=== PATIENT | male | born 1975 | race Caucasian/White ===

== ENCOUNTER → 2018-12-02 16:26 | Outpatient (CLI) | payer SELFPAY ==
[2018-12-02 17:16] LABS: Absolute Lymphocyte Count 2.14 X10^3/ul (0.83-4.51); Absolute Neutrophil Count 4.3 X10^3/uL (2.0-7.7); Basophil# 0.03 X10^3/uL; Basophil% 0.4 % (0-1); Eosinophil# 0.29 X10^3/uL; Hemoglobin 15.6 g/dl (13.0-16.5); Lymphocyte # 2.14 X10^3/ul (4.0); Lymphocyte % 29.4 % (19-41); Mean Corp Hgb Conc 34.7 g/gl (32-36); Mean Corpuscular Volume 89.3 fL (80-94); Monocyte# 0.54 X10^3/uL; Monocyte% 7.4 % (0-10); Neutrophil # 4.26 X10^3/uL (2.7-7.7); Neutrophil % 58.7 % (47-70); Platelet Count 228 K/mm3 (150-450); RBC Distribution Width CV 12.5 % (11.6-14.6); RBC Distribution Width SD 40.6 fl (35.1-43.9); Red Blood Count 5.04 M/mm3 (4.6-6.2); White Blood Count 7.3 K/mm3 (4.4-11.0)
[2018-12-02 17:19] LABS: POSITIVE COUNT NO; POSITIVE DIFFERENTIAL NO; POSITIVE MORPHOLOGY NO
[2018-12-02 17:22] LABS: Erythrocyte Sedimentation Rate 4 mm/hr (0-15)
[2018-12-02 18:17] LABS: ALB/GLOB Ratio 1.2 RATIO (0.9-2.4); AST(SGOT) 26 U/L (15-37); Alanine Aminotransfer ALT/SGPT 60 U/L (16-61); Albumin, Serum 4.4 g/dL (3.2-5.0); Alkaline Phosphatase 66 U/L (45-117); Anion Gap 8 (5-15); BUN 14 mg/dL (7-18); BUN/Creat Ratio 12.1 RATIO (10-20); CPK Total, Creatine Kinase 106 U/L (39-308); Chloride 106 mmol/L (98-107); Creatinine, Serum 1.16 mg/dL (0.70-1.30); EST Glomerular Filtration Rate 73 mL/min (>60); Est Glom Filt Rate - Afr Amer 89 mL/min (>60); Free T3 3.2 pg/mL (2.18-3.98); Globulin 3.6 g/dL (2.2-4.2); Glucose 87 mg/dL (74-106); Potassium 3.7 mmol/L (3.5-5.1); Rheumatoid Factor < 10.0 IU/mL (<15); Sodium Level 141 mmol/L (136-145); T4 Free Direct 0.92 ng/dL (0.76-1.46); Thyroid Stim Hormone (TSH) 0.75 uIU/mL (0.358-3.74)
[2018-12-02 18:28] LABS: Vitamin D,25 Hydroxy 18.5 ng/mL (29.95-100.01)
[2018-12-06 12:47] LABS: ANTINUCLEAR ANTIBODIES DIRECT Negative (Negative)
[2018-12-07 11:39] LABS: Acetylcholine Receptor Binding < 0.03 nmol/L (0.00-0.24); CCP IgG Antibodies 9 units (0-19)
== END ==
PROVIDERS: Family Provider Family Medicine; PCP Family Medicine; Visit Provider Family Medicine
DX: G72.9 Myopathy, unspecified (principal); G70.9 Myoneural disorder, unspecified; E55.9 Vitamin D deficiency, unspecified; R53.83 Other fatigue
CPT/HCPCS: 36415; 80053; 82306; 82550; 84238; 84439; 84443; 84481; 85025; 85652; 86038; 86200; 86225; 86235; 86431

== ENCOUNTER → 2019-09-04 | Outpatient (CLI) | payer OTHER, SELFPAY ==
[2014-10-19 10:22] VITALS: BMI 34.8
== END | disposition home or self-care (01) ==
LOC: BFHLAB 15:56
PROVIDERS: Family Provider Family Medicine; PCP Family Medicine; Visit Provider Family Medicine
DX: R68.82 Decreased libido (principal)
CPT/HCPCS: 36415; 84403

== ENCOUNTER → 2019-12-18 16:47 | Outpatient (CLI) | payer OTHER, SELFPAY ==
[2014-10-19 10:22] VITALS: BMI 34.8
[2019-12-18 17:38] LABS: Absolute Lymphocyte Count 2.32 X10^3/uL (0.83-4.51); Absolute Neutrophil Count 6.7 X10^3/uL (2.0-7.7); Basophil# 0.03 X10^3/uL; Basophil% 0.3 % (0-1); Eosinophil# 0.16 X10^3/uL; Eosinophils% 1.6 % (0-5); Hemoglobin 16.1 g/dL (13.0-16.5); Lymphocyte # 2.32 X10^3/ul (4.0); Lymphocyte % 23.2 % (19-41); Mean Corpuscular Hgb 31.1 pg (27.0-32.0); Mean Platelet Vol. 9.8 fl (6.2-12.0); Monocyte# 0.76 X10^3/uL; Monocyte% 7.6 % (0-10); NRBC Flagged by Analyzer 0 % (0-5); Neutrophil # 6.68 X10^3/uL (2.7-7.7); Neutrophil % 66.9 % (47-70); Platelet Count 229 K/mm3 (150-450); RBC Distribution Width CV 11.7 % (11.6-14.6); RBC Distribution Width SD 38.1 fl (35.1-43.9); Red Blood Count 5.17 M/mm3 (4.6-6.2)
[2019-12-18 17:54] LABS: Hemoglobin A1c 5.2 % (4.2-6.3)
[2019-12-18 18:10] LABS: Vitamin D,25 Hydroxy 27.1 ng/mL (29.95-100.01)
[2019-12-18 18:11] LABS: ALB/GLOB Ratio 1.3 RATIO (0.9-2.4); AST(SGOT) 11 U/L (15-37); Alanine Aminotransfer ALT/SGPT 32 U/L (16-61); Albumin, Serum 4.2 g/dL (3.2-5.0); Alkaline Phosphatase 68 U/L (45-117); Anion Gap 7 (5-15); BUN 13 mg/dL (7-18); BUN/Creat Ratio 11.1 RATIO (10-20); Chloride 106 mmol/L (98-107); Creatinine, Serum 1.17 mg/dL (0.70-1.30); EST Glomerular Filtration Rate 72 mL/min (>60); Est Glom Filt Rate - Afr Amer 87 mL/min (>60); Globulin 3.3 g/dL (2.2-4.2); Glucose 92 mg/dL (74-106); Magnesium 2.3 mg/dL (1.6-2.6); Potassium 3.8 mmol/L (3.5-5.1); Protein, Total 7.5 g/dL (6.4-8.2); Sodium Level 139 mmol/L (136-145); T4 Free Direct 1.06 ng/dL (0.76-1.46); Thyroid Stim Hormone (TSH) 0.89 uIU/mL (0.358-3.74)
[2019-12-19 09:00] LABS: Follicle Stimulating Hormone 4.2 mIU/mL; Luteinizing Hormone 2.6 mIU/mL
== END ==
PROVIDERS: Visit Provider Family Medicine
DX: E55.9 Vitamin D deficiency, unspecified (principal); R63.4 Abnormal weight loss; R00.2 Palpitations; R68.82 Decreased libido
CPT/HCPCS: 36415; 80053; 82306; 83001; 83002; 83036; 83735; 84403; 84439; 84443; 85025

== ENCOUNTER → 2021-03-03 16:56 | Outpatient (CLI) | payer BC, SELFPAY ==
[2014-10-19 10:22] VITALS: BMI 34.8
[2021-03-03 17:53] LABS: Absolute Lymphocyte Count 2.15 X10^3/uL (0.83-4.51); Absolute Neutrophil Count 4.5 X10^3/uL (2.0-7.7); Basophil# 0.04 X10^3/uL; Basophil% 0.5 % (0-1); Eosinophil# 0.27 X10^3/uL; Eosinophils% 3.5 % (0-5); Hematocrit 46.9 % (40-54); Hemoglobin 15.9 g/dL (13.0-16.5); Lymphocyte # 2.15 X10^3/ul (0.83-4.51); Mean Corp Hgb Conc 33.9 g/dL (32-36); Mean Corpuscular Hgb 30.6 pg (27.0-32.0); Mean Corpuscular Volume 90.4 fL (80-94); Mean Platelet Vol. 10.1 fl (6.2-12.0); Monocyte# 0.67 X10^3/uL; Monocyte% 8.7 % (0-10); NRBC Flagged by Analyzer 0 % (0-5); Neutrophil # 4.52 X10^3/uL (2.7-7.7); Platelet Count 233 K/mm3 (150-450); RBC Distribution Width CV 12.2 % (11.6-14.6); RBC Distribution Width SD 40.1 fl (35.1-43.9); Red Blood Count 5.19 M/mm3 (4.6-6.2); White Blood Count 7.7 K/mm3 (4.4-11.0)
[2021-03-03 18:44] LABS: ALB/GLOB Ratio 1.2 RATIO (0.9-2.4); AST(SGOT) 21 U/L (15-37); Alanine Aminotransfer ALT/SGPT 48 U/L (16-61); Albumin, Serum 3.9 g/dL (3.2-5.0); Alkaline Phosphatase 74 U/L (45-117); Anion Gap 7 (5-15); BUN 12 mg/dL (7-18); Calcium,Total 8.5 mg/dL (8.5-10.1); Chloride 107 mmol/L (98-107); Creatinine, Serum 1.09 mg/dL (0.70-1.30); EST Glomerular Filtration Rate 78 mL/min (>60); Est Glom Filt Rate - Afr Amer 94 mL/min (>60); Globulin 3.3 g/dL (2.2-4.2); Glucose 96 mg/dL (74-106); Potassium 3.8 mmol/L (3.5-5.1); Protein, Total 7.2 g/dL (6.4-8.2); Sodium Level 140 mmol/L (136-145); Thyroid Stim Hormone (TSH) 1.27 uIU/mL (0.358-3.74)
[2021-03-04 10:35] LABS: Follicle Stimulating Hormone 3.9 mIU/mL; Luteinizing Hormone 2.8 mIU/mL
== END ==
PROVIDERS: PCP Family Medicine; Referring Provider Family Medicine; Visit Provider Family Medicine
DX: R63.4 Abnormal weight loss (principal); E55.9 Vitamin D deficiency, unspecified; R68.82 Decreased libido; R06.00 Dyspnea, unspecified; E29.1 Testicular hypofunction
CPT/HCPCS: 36415; 80053; 83001; 83002; 84403; 84439; 84443; 85025

== ENCOUNTER → 2021-03-31 16:25 | Outpatient (CLI) | payer BC, SELFPAY ==
[2014-10-19 10:22] VITALS: BMI 34.8
[2021-03-31 18:35] LABS: PSA,Total - Annual Screen 0.65 ng/mL (0.00-4.00)
== END ==
PROVIDERS: PCP Family Medicine; Referring Provider Family Medicine; Visit Provider Family Medicine
DX: Z12.5 Encounter for screening for malignant neoplasm of prostate (principal)
CPT/HCPCS: 36415; 84153; G0103

== ENCOUNTER → 2022-12-07 | Outpatient (CLI) | payer BC, SELFPAY ==
[2022-12-07 18:14] LABS: Absolute Lymphocyte Count 2.09 X10^3/uL (0.83-4.51); Absolute Neutrophil Count 5.8 X10^3/uL (2.0-7.7); Basophil# 0.03 X10^3/uL; Basophil% 0.3 % (0-1); Eosinophil# 0.25 X10^3/uL; Eosinophils% 2.8 % (0-5); Hematocrit 51.6 % (40-54); Lymphocyte # 2.09 X10^3/ul (0.83-4.51); Lymphocyte % 23.3 % (19-41); Mean Corp Hgb Conc 34.9 g/dL (32-36); Mean Corpuscular Hgb 30.6 pg (27.0-32.0); Mean Corpuscular Volume 87.8 fL (80-94); Monocyte# 0.76 X10^3/uL; Monocyte% 8.5 % (0-10); NRBC Flagged by Analyzer 0 % (0-5); Neutrophil # 5.83 X10^3/uL (2.7-7.7); Neutrophil % 64.9 % (47-70); Platelet Count 234 K/mm3 (150-450); RBC Distribution Width CV 12.4 % (11.6-14.6); RBC Distribution Width SD 40.3 fl (35.1-43.9); Red Blood Count 5.88 M/mm3 (4.6-6.2)
[2022-12-07 18:40] LABS: Vitamin B12 473 pg/mL (211-911)
[2022-12-07 18:47] LABS: ALB/GLOB Ratio 1.2 RATIO (0.9-2.4); AST(SGOT) 21 U/L (15-37); Alanine Aminotransfer ALT/SGPT 40 U/L (16-61); Albumin, Serum 4.2 g/dL (3.2-5.0); Alkaline Phosphatase 46 U/L (45-117); Anion Gap 7 (5-15); BUN 11 mg/dL (7-18); BUN/Creat Ratio 9.1 RATIO (10-20); Calcium,Total 8.9 mg/dL (8.5-10.1); Chloride 105 mmol/L (98-107); Creatinine, Serum 1.21 mg/dL (0.70-1.30); EST Glomerular Filtration Rate 68 mL/min (>60); Est Glom Filt Rate - Afr Amer 83 mL/min (>60); Ferritin 28 ng/mL (26-388); Follicle Stimulating Hormone < 0.2 mIU/mL; Globulin 3.5 g/dL (2.2-4.2); Glucose 87 mg/dL (74-106); Luteinizing Hormone < 0.2 mIU/mL; PSA,Total - Annual Screen 0.83 ng/mL (0.00-4.00); Potassium 4.1 mmol/L (3.5-5.1); Prolactin 33.9 ng/mL; Protein, Total 7.7 g/dL (6.4-8.2); Sodium Level 140 mmol/L (136-145); Thyroid Stim Hormone (TSH) 1.13 uIU/mL (0.358-3.74)
[2022-12-08 12:31] LABS: Pathologist Review Reviewed
[2022-12-11 11:09] LABS: Testosterone, Free 30.08 ng/dL (5.00-21.00)
[2022-12-11 19:22] LABS: Testosterone, % Free 4.06 % (1.50-4.20); Testosterone, Total 741 ng/dL (264-916)
== END | disposition home or self-care (01) ==
LOC: BFHLAB 16:17
PROVIDERS: PCP Family Medicine; Visit Provider Family Medicine
DX: E29.1 Testicular hypofunction (principal); R51.9 Headache, unspecified; H53.9 Unspecified visual disturbance; R41.3 Other amnesia; Z51.81 Encounter for therapeutic drug level monitoring
CPT/HCPCS: 36415; 80053; 82607; 82728; 83001; 83002; 84146; 84153; 84402; 84403; 84443; 85025; G0103

== ENCOUNTER → 2023-01-04 | Outpatient (CLI) | payer BC, SELFPAY ==
--- NOTE | 2023-01-04 06:38 | MRI_ITS ---
STUDY: MRI CERVICAL SPINE WITH AND WITHOUT CONTRAST REASON FOR EXAM: Male, 47 years old. LEFT ARM NUMBNESS, HEADACHES TECHNIQUE: Standardized fat and water weighted pulse sequences were obtained in the sagittal and axial following administration of IV 23ml clariscan. COMPARISON: None FINDINGS: Normal foramen magnum and brainstem-cervical cord junction. Normal craniovertebral junction. Normal anterior atlantoaxial articulation. Normal odontoid process. Normal cervical lordosis. Normal vertebral bodies and posterior osseous elements. C2-3: Normal endplates. Normal disc height, signal and morphology. Normal central canal and intervertebral neural foramina. C3-4: Normal endplates. Normal disc height, signal and morphology. Normal central canal and intervertebral neural foramina. C4-5: Normal endplates. Normal disc height, signal and morphology. Normal central canal and right neural foramen. Mild left foraminal stenosis secondary to uncovertebral and facet joint hypertrophy, with nerve root impingement. C5-6: Normal endplates. Moderate disc space narrowing with diffuse disc desiccation and mild posterior annular bulging eccentric to the right contributing to mild central canal stenosis and mass effect on anterior aspect of the cord. Normal central canal and intervertebral neural foramina. C6-7: Normal endplates. Diffuse disc desiccation with mild disc space narrowing and minimal annular bulging posteriorly Normal central canal and intervertebral neural foramina. C7-T1: Normal endplates. Mild disc desiccation. Normal disc height and morphology. Normal central canal and intervertebral neural foramina. Normal cervical cord. There is no demonstrated cervical cord demyelinating process or syrinx or evidence of cord injury. There is no abnormal enhancement of the bony or soft tissue structures or spinal cord. No suspicious bony or soft tissue abnormalities are present. Normal visualized soft tissue structures. MRI/Spine Cervical W/WO Contrast IMPRESSION: 1. Multilevel degenerative changes, as described above. 2. Moderate disc space narrowing with posterior annular bulging contributing to mild central canal stenosis at C5-C6. 3. C4-C5 mild left foraminal stenosis secondary to uncovertebral and facet joint hypertrophy, with nerve root impingement. Electronically Signed: José Talbot MD at 15:14 EST ,
--- NOTE | 2023-01-04 06:38 | MRI_ITS ---
STUDY: MRI BRAIN WITH AND WITHOUT CONTRAST REASON FOR EXAM: Male, 47 years old. DAILY HEADACHES, VISION DISTURBANCE,LT ARM NUMBESS, MEMORY IMPAIRMENT TECHNIQUE: Standardized multiplanar fat and water weighted pulse sequences were obtained. 23ML IV CLARISCAN was administered for the contrast portion of the examination. COMPARISON: None. FINDINGS: Normal size extra-axial spaces for the patient''s age. Normal white matter tracts of the supratentorial brain. There is no evidence for recent intracranial ischemia or other cause of cytotoxic edema on diffusion weighted imaging (DWI). Normal T2* images of the brain without demonstrated susceptibility artifact. There is no demonstrated hemosiderin stain. There are no demyelinating plagues of the supratentorial brain, brainstem or cerebellum. There are no findings suspicious for multiple sclerosis (MS). There is asymmetry of the ventricles consistent with an anatomic variant. Normal bilateral basal ganglia. Normal thalami. There is no extra-axial fluid accumulation. Normal flow voids within the major intracranial circulation suggesting patency by spin echo criteria. Normal venous enhancement. There is no enhancing intra-axial or extra-axial abnormality. There are no focal brain parenchymal lesions or abnormal enhancement. There is no abnormal thickening or enhancement of meninges or dura. No pituitary lesion or enlargement is present. Normal sella turcica, pituitary gland, infundibular stalk, optic chiasm and hypothalamus. Normal tectal plate and pineal gland. Normal midbrain, bony and medulla. Normal cerebellum. Normal basal cisterns. Normal bilateral temporal bones. Normal bilateral internal auditory canals. No demonstrated orbital abnormality, within the constraints of a routine brain study. Normal visualized paranasal sinuses. Normal calvarium and skull base. Normal visualized soft tissue structures. Normal visualized upper cervical spine. MRI/Brain W/WO Contrast IMPRESSION: 1. Normal unenhanced and enhanced MRI of the brain. 2. There is no enhancing intra-axial or extra-axial abnormality. There are no focal brain parenchymal lesions or abnormal enhancement. There is no abnormal thickening or enhancement of meninges or dura. No pituitary lesion or enlargement is present. Electronically Signed: José Talbot MD at 12:57 EST ,
== END | disposition home or self-care (01) ==
PROVIDERS: PCP Family Medicine; Referring Provider Family Medicine; Visit Provider Family Medicine
DX: R51.9 Headache, unspecified (principal); H53.8 Other visual disturbances; R20.2 Paresthesia of skin; R41.3 Other amnesia
CPT/HCPCS: 70553; 72156; A9575

== ENCOUNTER → 2023-10-16 | Outpatient (CLI) | payer BC, SELFPAY ==
[2023-10-16 08:57] LABS: Absolute Lymphocyte Count 1.66 X10^3/uL (0.83-4.51); Absolute Neutrophil Count 5.6 X10^3/uL (2.0-7.7); Basophil# 0.04 X10^3/uL; Basophil% 0.5 % (0-1); Eosinophil# 0.24 X10^3/uL; Eosinophils% 2.9 % (0-5); Hemoglobin 18.4 g/dL (13.0-16.5); Lymphocyte # 1.66 X10^3/ul (0.83-4.51); Lymphocyte % 20.4 % (19-41); Mean Corp Hgb Conc 34.7 g/dL (32-36); Mean Corpuscular Hgb 30.9 pg (27.0-32.0); Mean Corpuscular Volume 89.1 fL (80-94); Mean Platelet Vol. 9.2 fl (6.2-12.0); Monocyte# 0.59 X10^3/uL; Monocyte% 7.2 % (0-10); NRBC Flagged by Analyzer 0 % (0-5); Neutrophil % 68.9 % (47-70); Platelet Count 212 K/mm3 (150-450); RBC Distribution Width CV 12.4 % (11.6-14.6); RBC Distribution Width SD 40.5 fl (35.1-43.9); Red Blood Count 5.95 M/mm3 (4.6-6.2); White Blood Count 8.1 K/mm3 (4.4-11.0)
[2023-10-16 09:27] LABS: ALB/GLOB Ratio 1.1 RATIO (0.9-2.4); AST(SGOT) 15 U/L (15-37); Alanine Aminotransfer ALT/SGPT 35 U/L (16-61); Albumin, Serum 3.9 g/dL (3.2-5.0); Alkaline Phosphatase 50 U/L (45-117); Anion Gap 2 (5-15); BUN 14 mg/dL (7-18); Calcium,Total 8.8 mg/dL (8.5-10.1); Chloride 107 mmol/L (98-107); Cholesterol 172 mg/dL (200); Creatinine, Serum 1.55 mg/dL (0.70-1.30); EST Glomerular Filtration Rate 51 mL/min (>60); Est Glom Filt Rate - Afr Amer 62 mL/min (>60); Globulin 3.4 g/dL (2.2-4.2); Glucose 97 mg/dL (74-106); High Density Lipoprotein 38 mg/dL; Potassium 5.2 mmol/L (3.5-5.1); Protein, Total 7.3 g/dL (6.4-8.2); Sodium Level 138 mmol/L (136-145); T4 Free Direct 0.84 ng/dL (0.76-1.46); Thyroid Stim Hormone (TSH) 1.24 uIU/mL (0.358-3.74); Triglycerides 83 mg/dL; Very Low Density Lipoprotein 17 mg/dL (5-40)
[2023-10-18 09:14] LABS: Vitamin D,25 Hydroxy 80.6 ng/mL
== END | disposition home or self-care (01) ==
LOC: LAB 08:32
PROVIDERS: PCP Nurse Practitioner Family; Referring Provider Nurse Practitioner Family; Visit Provider Nurse Practitioner Family
DX: Z00.01 Encounter for general adult medical examination with abnormal findings (principal); E55.9 Vitamin D deficiency, unspecified; E29.1 Testicular hypofunction; Z51.81 Encounter for therapeutic drug level monitoring
CPT/HCPCS: 36415; 80053; 80061; 82306; 84403; 84439; 84443; 85025